=== PATIENT | female | born 1945 | race Caucasian/White ===

== ENCOUNTER 2021-03-17 11:57 | Emergency (ER) | payer MEDICARE, OTHER ==
[~2021-03-17] VITALS: Ht 172.7 cm; Wt 122.5 kg
[2021-03-17 12:29] LABS: BASOPHILS ABSOLUTE AUTO 0.05 K/mm3 (0.00-0.23); BASOPHILS PERCENT AUTO 1 % (0-2); EOSINOPHILS ABSOLUTE AUTO 0.17 K/mm3 (0.00-0.68); EOSINOPHILS PERCENT AUTO 2 % (0-6); Hematocrit 45.7 % (33.0-51.0); Hemoglobin 15.7 g/dL (11.5-16.0); IMMATURE GRAN ABSOLUTE AUTO 0.04 K/mm3 (0.00-0.10); IMMATURE GRAN PERCENT AUTO 0 % (0-1); LYMPHOCYTES ABSOLUTE AUTO 1.41 K/mm3 (0.84-5.20); LYMPHOCYTES PERCENT AUTO 14 % (21-46); MONOCYTES ABSOLUTE AUTO 0.76 K/mm3 (0.16-1.47); MONOCYTES PERCENT AUTO 8 % (4-13); Mean Corpuscular HGB 32.2 pg (26.0-34.0); Mean Corpuscular HGB Conc 34.4 g/dL (31.5-36.5); Mean Corpuscular Volume 94 fL (80-100); Mean Platelet Volume 11.2 fL (9.1-12.4); NEUTROPHILS ABSOLUTE AUTO 7.69 K/mm3 (1.96-9.15); NEUTROPHILS PERCENT AUTO 76 % (41-73); Platelet Count 218 K/mm3 (150-400); RDW Coefficient Variation 12.8 % (11.7-14.2); RDW Standard Deviation 44.2 fL (35.1-46.3); Red Blood Cell Count 4.88 M/mm3 (3.80-5.20); White Blood Cell Count 10.12 K/mm3 (4.00-11.30)
[2021-03-17 12:45] LABS: Alanine Aminotransfer (ALT/SGP 18 U/L (12-78); Albumin, Blood 3.5 g/dL (3.4-5.0); Alk Phos 94 U/L (50-136); Anion Gap 4 mmol/L (6-16); Aspartate Aminotrans (AST/SGOT 13 U/L (12-37); Bilirubin, Total 0.6 mg/dL (0.1-1.0); Blood Urea Nitrogen 17 mg/dL (8-24); Bun/Creatinine Ratio 22.5 (12.0-20.0); CO2, Blood 26 mmol/L (21-32); Calcium, Blood 8.9 mg/dL (8.5-10.1); Chloride, Blood 107 mmol/L (98-108); Creatinine, Blood 0.75 mg/dL (0.40-1.00); Globulin, Blood 3.5 g/dL (2.2-4.0); Glomerular Filtration Rate >60 (60-); Glucose, Blood 109 mg/dL (70-99); Potassium, Blood 4.3 mmol/L (3.5-5.5); Sodium, Blood 137 mmol/L (136-145)
[2021-03-17 12:57] LABS: Source, Urine Clean Catch
[2021-03-17 13:00] LABS: Appearance, Urine Clear (Clear); Bilirubin, Urine Neg (Neg); Blood, Urine Neg (Neg); Color, Urine Yellow (P-Yellow); Glucose Qualitative, Urine Neg (Neg); Ketones, Urine Neg (Neg); Leukocyte Esterase, Urine 2+ (Neg); Nitrite, Urine Neg (Neg); Protein, Urine 1+ (Neg); Urobilinogen, Urine NORM (Normal); pH, Urine 6.5 (5.0-8.0)
[2021-03-17 13:17] LABS: Bacteria Mod /hpf; Red Blood Cells, Urine 0-2 /hpf (0-2); Squamous Epithelial Cells Few /hpf (Few)
[2021-03-17] MEDS ORDERED: XARELTO20 M1 PO (13:21)
[2021-03-17] MEDS ORDERED: DILTIAZEM HCL120 M2 PO (13:21)
[2021-03-17] MEDS ORDERED: FLUTICASONE-SA1 EAC9 IH (13:21)
[2021-03-17] MEDS ORDERED: SYNTHROID125 MC1 (13:21)
== END 2021-03-17 16:00 | disposition home or self-care (01) ==
LOC: ER 11:57
PROVIDERS: Physician Assistant
DX: N85.9 Noninflammatory disorder of uterus, unspecified (principal); I48.91 Unspecified atrial fibrillation; J44.9 Chronic obstructive pulmonary disease, unspecified; Z79.01 Long term (current) use of anticoagulants
CPT/HCPCS: 36415; 74177; 76705; 80053; 81001; 83690; 85025; 87086; 99284-25; J7030; Q9967

== ENCOUNTER 2021-04-20 12:45 | Day surgery (SDC) | payer MEDICARE, OTHER ==
[~2021-04-20] VITALS: Ht 167.6 cm; Wt 119.5 kg
[~2021-04-20 12:45] MED LIST: ALPHAGAN P5 ML BOTHEYES; DILTIAZEM HCL120 M2 PO; FLUTICASONE-SA1 EAC9 IH; SYMBICORT 160-4.6 GM INH; SYNTHROID125 MC1; XARELTO20 M1 PO
[2021-04-20] MEDS ORDERED: OSTEOBLOX CF C1 EACH (13:22)
--- NOTE | 2021-04-20 13:39 | NUR ---
04/20/21 1339 Jacquie Uriarte 1 TRY RIGHT HAND MOVED 2 TRY RIGHT UPPER ARM MOVED
--- NOTE | 2021-04-20 15:47 | NUR ---
04/20/21 1547 Alissa Combs PEDIATRIC SCOPE OUT AT 1516 AND RESTART WITH ADULT SCOPE AT 1518
== END 2021-04-20 16:18 | disposition home or self-care (01) ==
LOC: ORSCSDS 12:45
DX: R10.13 Epigastric pain (principal); K21.00 Gastro-esophageal reflux disease with esophagitis, without bleeding; B37.81 Candidal esophagitis; K22.2 Esophageal obstruction; K44.9 Diaphragmatic hernia without obstruction or gangrene; D12.2 Benign neoplasm of ascending colon; K57.30 Diverticulosis of large intestine without perforation or abscess without bleeding; K64.8 Other hemorrhoids; K59.00 Constipation, unspecified; I48.0 Paroxysmal atrial fibrillation; I10 Essential (primary) hypertension; E05.00 Thyrotoxicosis with diffuse goiter without thyrotoxic crisis or storm; J44.9 Chronic obstructive pulmonary disease, unspecified; E66.01 Morbid (severe) obesity due to excess calories; Z68.41 Body mass index [BMI] 40.0-44.9, adult; Z79.01 Long term (current) use of anticoagulants; Z79.899 Other long term (current) drug therapy
CPT/HCPCS: 88305; 88312; 88342; J2001; J2704; J7120

== ENCOUNTER 2021-10-21 20:52 | Observation (INO) | payer MEDICARE, OTHER ==
[~2021-10-21] VITALS: Ht 167.6 cm; Wt 120.7 kg
[~2021-10-21 20:52] MED LIST changes: +OSTEOBLOX CF C1 EACH; -SYNTHROID125 MC1; +SYNTHROID125 MC1 PO
[2021-10-21 21:56] LABS: BASOPHILS ABSOLUTE AUTO 0.08 K/mm3 (0.00-0.23); BASOPHILS PERCENT AUTO 1 % (0-2); EOSINOPHILS PERCENT AUTO 5 % (0-6); Hematocrit 47.6 % (33.0-51.0); Hemoglobin 16.1 g/dL (11.5-16.0); IMMATURE GRAN ABSOLUTE AUTO 0.03 K/mm3 (0.00-0.10); IMMATURE GRAN PERCENT AUTO 0 % (0-1); LYMPHOCYTES PERCENT AUTO 30 % (21-46); MONOCYTES ABSOLUTE AUTO 0.71 K/mm3 (0.16-1.47); MONOCYTES PERCENT AUTO 9 % (4-13); Mean Corpuscular HGB 32.3 pg (26.0-34.0); Mean Corpuscular HGB Conc 33.8 g/dL (31.5-36.5); Mean Corpuscular Volume 96 fL (80-100); NEUTROPHILS ABSOLUTE AUTO 4.51 K/mm3 (1.96-9.15); NEUTROPHILS PERCENT AUTO 56 % (41-73); Platelet Count 220 K/mm3 (150-400); RDW Coefficient Variation 12.5 % (11.7-14.2); RDW Standard Deviation 44.4 fL (35.1-46.3); Red Blood Cell Count 4.98 M/mm3 (3.80-5.20); White Blood Cell Count 8.13 K/mm3 (4.00-11.30)
[2021-10-21 22:13] LABS: Alanine Aminotransfer (ALT/SGP 24 U/L (12-78); Albumin, Blood 3.4 g/dL (3.4-5.0); Albumin/Globulin Ratio 0.9 (0.8-1.8); Alk Phos 108 U/L (50-136); Anion Gap 7 mmol/L (6-16); Aspartate Aminotrans (AST/SGOT 17 U/L (12-37); Bilirubin, Total 0.3 mg/dL (0.1-1.0); Blood Urea Nitrogen 40 mg/dL (8-24); CO2, Blood 23 mmol/L (21-32); Calcium, Blood 9.4 mg/dL (8.5-10.1); Chloride, Blood 110 mmol/L (98-108); Creatinine, Blood 1.43 mg/dL (0.40-1.00); Globulin, Blood 3.7 g/dL (2.2-4.0); Glomerular Filtration Rate 35 (60-); Glucose, Blood 118 mg/dL (70-99); Magnesium, Blood 2.2 mg/dL (1.6-2.4); Potassium, Blood 4.5 mmol/L (3.5-5.5); Sodium, Blood 140 mmol/L (136-145); Total Protein, Blood 7.1 g/dL (6.4-8.2); Troponin I <0.015 ng/mL (0.000-0.040)
[2021-10-22 00:09] LABS: Free Thyroxine 1.13 ng/dL (0.70-1.60)
[2021-10-22 01:52] LABS: Influenza A, PCR NEGATIVE (NEGATIVE); Influenza B, PCR NEGATIVE (NEGATIVE); Resp Syncytial Virus, PCR NEGATIVE (NEGATIVE); SARS-Cov-2 (COVID-19) PCR, MMC NEGATIVE (NEGATIVE)
[2021-10-22 04:11] LABS: Hematocrit 43.7 % (33.0-51.0); Hemoglobin 14.7 g/dL (11.5-16.0); Mean Corpuscular HGB 32.2 pg (26.0-34.0); Mean Corpuscular HGB Conc 33.6 g/dL (31.5-36.5); Mean Corpuscular Volume 96 fL (80-100); Mean Platelet Volume 10.4 fL (9.1-12.4); Platelet Count 203 K/mm3 (150-400); RDW Coefficient Variation 12.6 % (11.7-14.2); RDW Standard Deviation 44.3 fL (35.1-46.3); Red Blood Cell Count 4.56 M/mm3 (3.80-5.20); White Blood Cell Count 8.02 K/mm3 (4.00-11.30)
[2021-10-22 04:36] LABS: Anion Gap 7 mmol/L (6-16); Blood Urea Nitrogen 31 mg/dL (8-24); Bun/Creatinine Ratio 37.3 (12.0-20.0); CO2, Blood 21 mmol/L (21-32); CPK Creatine Kinase 72 U/L (26-193); Calcium, Blood 7.8 mg/dL (8.5-10.1); Chloride, Blood 115 mmol/L (98-108); Creatine Kinase MB 1.6 ng/mL (0.0-3.6); Creatine Kinase MB Index 2.2 (0.0-4.0); Creatinine, Blood 0.83 mg/dL (0.40-1.00); Glomerular Filtration Rate >60 (60-); Glucose, Blood 118 mg/dL (70-99); Sodium, Blood 143 mmol/L (136-145); Troponin I 0.081 ng/mL (0.000-0.040)
[2021-10-22 13:23] LABS: Creatine Kinase MB 2.4 ng/mL (0.0-3.6); Troponin I 0.058 ng/mL (0.000-0.040)
[2021-10-22 13:27] LABS: Creatine Kinase MB Index 4.3 (0.0-4.0)
[2021-10-22] MEDS ORDERED: FLUT1DIS5 INH (13:27)
--- NOTE | 2021-10-22 20:59 | NUR ---
ASSUMED CARE OF PT AT 1900, REPORT RECEIVED FROM KRISSY VELAZQUEZ. PT ALERT AND ORIENTED, FOLLOWING COMMANDS. PT ON RA. PIVS SALINE LOCKED. ABLE TO REPOSITION SELF, CALL LIGHT WITHIN REACH.
[2021-10-23 03:38] LABS: BASOPHILS ABSOLUTE AUTO 0.06 K/mm3 (0.00-0.23); BASOPHILS PERCENT AUTO 1 % (0-2); EOSINOPHILS ABSOLUTE AUTO 0.12 K/mm3 (0.00-0.68); EOSINOPHILS PERCENT AUTO 1 % (0-6); Hematocrit 47.5 % (33.0-51.0); IMMATURE GRAN ABSOLUTE AUTO 0.03 K/mm3 (0.00-0.10); IMMATURE GRAN PERCENT AUTO 0 % (0-1); LYMPHOCYTES ABSOLUTE AUTO 1.53 K/mm3 (0.84-5.20); LYMPHOCYTES PERCENT AUTO 18 % (21-46); MONOCYTES ABSOLUTE AUTO 0.58 K/mm3 (0.16-1.47); MONOCYTES PERCENT AUTO 7 % (4-13); Mean Corpuscular HGB 32.1 pg (26.0-34.0); Mean Corpuscular HGB Conc 33.7 g/dL (31.5-36.5); Mean Corpuscular Volume 95 fL (80-100); Mean Platelet Volume 10.4 fL (9.1-12.4); NEUTROPHILS ABSOLUTE AUTO 6.32 K/mm3 (1.96-9.15); NEUTROPHILS PERCENT AUTO 73 % (41-73); Platelet Count 231 K/mm3 (150-400); RDW Coefficient Variation 12.8 % (11.7-14.2); RDW Standard Deviation 45.4 fL (35.1-46.3); Red Blood Cell Count 4.98 M/mm3 (3.80-5.20); White Blood Cell Count 8.64 K/mm3 (4.00-11.30)
[2021-10-23 04:13] LABS: Albumin, Blood 3.2 g/dL (3.4-5.0); Anion Gap 10 mmol/L (6-16); Blood Urea Nitrogen 28 mg/dL (8-24); Bun/Creatinine Ratio 35.6 (12.0-20.0); CO2, Blood 24 mmol/L (21-32); Chloride, Blood 110 mmol/L (98-108); Creatinine, Blood 0.79 mg/dL (0.40-1.00); Glomerular Filtration Rate >60 (60-); Glucose, Blood 105 mg/dL (70-99); Magnesium, Blood 2.3 mg/dL (1.6-2.4); Phosphorus, Blood 2.8 mg/dL (2.5-4.9); Potassium, Blood 4.2 mmol/L (3.5-5.5); Sodium, Blood 144 mmol/L (136-145)
--- NOTE | 2021-10-23 06:02 | NUR ---
SHIFT SUMMARY PT ALERT AND ORIENTED T/O SHIFT. REMAINS ON RA. HR 60-80'S SINUS ON MONITOR, PRN HYDRALAZINE GIVEN TWICE FOR SBP >180. PT DENIES PAIN AND SOB. ABLE TO REPOSITION SELF IN BED. ONE BM THIS SHIFT. CALL LIGHT WITHIN REACH AND USED APPROPRIATELY.
--- NOTE | 2021-10-23 08:46 | NUR ---
AM NOTE... ASSUMED CARE OF PT AT 0700. THE PT IS UP IN THE CHAIR FOR BREAKFAST SHE WAS A MIN ASSIST W/FWW. THE PT HAS BEEN IN SR IN THE 70'S-80'S WITH A STABLE BP. TRACE EDEMA NOTED ON ASSESSMENT TO THE BLE. THE PT IS ON RA WITH O2 SATS >90% L/S CLEAR T/O. THE PT DENIES ANY CHEST PAIN/PRESSURE BUT SHE DOES C/O OF FEELING "WOOZY AND OFF JUST A BIT" THE PT WANTED TO STAY UP IN THE CHAIR FOR A BIT AFTER BREAKFAST. NO EVENTS NOTED ON TELE. CALL LIGHT IN REACH WILL CONTINUE TO MONITOR.
[2021-10-23] MEDS ORDERED: AMLO5 PO (11:40)
[2021-10-23] MEDS ORDERED: HYDROCHLOROTH12.5 MG PO (11:41)
--- NOTE | 2021-10-23 12:36 | NUR ---
PT GIVEN FIRST DOSE OF NORVASC AND HCTZ-SEE EMAR. HEART MONITOR PLACED BY [facility] FROM [facility] AND INSTRUCTIONS GIVEN. REVIEWED DISCHARGE INSTRUCTIONS WITH PT. PT QUESTIONED THE DOSING OF HER LEVOTHYROXINE. DR. FERRARI CALLED TO CONFIRM THAT THE DOSE IS TO BE 0.125 MG AND NOT 0.[address] FERRARI CONFIRMED THAT THE DOSE IS TO BE 0.125 MG. PT TO RECHECK THYROID FUNCTION IN ONE MONTH AND FOLLOW UP WITH HER PRIMARY CARE PHYSICIAN. RX FAXED TO [facility].
== END 2021-10-23 13:00 | disposition home or self-care (01) ==
LOC: ER 20:52 → ERHOLD 20:53 → ICUE 20:53
PROVIDERS: Emergency Medicine; Internal Medicine; ADMIT Internal Medicine
DX: R00.1 Bradycardia, unspecified (principal); T46.1X5A Adverse effect of calcium-channel blockers, initial encounter; I16.0 Hypertensive urgency; I48.0 Paroxysmal atrial fibrillation; N17.9 Acute kidney failure, unspecified; I10 Essential (primary) hypertension; J44.9 Chronic obstructive pulmonary disease, unspecified; E89.0 Postprocedural hypothyroidism; E66.01 Morbid (severe) obesity due to excess calories; Y84.2 Radiological procedure and radiotherapy as the cause of abnormal reaction of the patient, or of later complication, without mention of misadventure at the time of the procedure; Z79.01 Long term (current) use of anticoagulants; Z96.653 Presence of artificial knee joint, bilateral; Z20.822 Contact with and (suspected) exposure to COVID-19
CPT/HCPCS: 0241U; 36415; 80048; 80053; 80069; 82550; 82553; 83735; 84439; 84443; 84484; 85025; 85027; 93005; 93010; 93246; 93306; 94640; 94664; 96365; 96366; 96375; 96376; 99285-25; A9270; G0378; J0360; J7050

== ENCOUNTER 2022-02-14 10:13 | Emergency (ER) | payer MEDICARE, OTHER ==
[~2022-02-14] VITALS: Ht 167.6 cm; Wt 117.9 kg
[~2022-02-14 10:13] MED LIST changes: +AMLO5 PO; +FLUT1DIS5 INH; +HYDROCHLOROTH12.5 MG PO
== END 2022-02-14 13:04 | disposition home or self-care (01) ==
LOC: ER 10:13
DX: S51.812A Laceration without foreign body of left forearm, initial encounter (principal); S51.811A Laceration without foreign body of right forearm, initial encounter; S80.02XA Contusion of left knee, initial encounter; J44.9 Chronic obstructive pulmonary disease, unspecified; Z87.891 Personal history of nicotine dependence; I48.91 Unspecified atrial fibrillation; Z88.0 Allergy status to penicillin; Z79.899 Other long term (current) drug therapy; X58.XXXA Exposure to other specified factors, initial encounter
CPT/HCPCS: 90471; 90714; 99284-25; A9270

== ENCOUNTER 2022-05-01 09:41 | Inpatient (IN) | payer MEDICARE, OTHER ==
[~2022-05-01] VITALS: Ht 167.6 cm; Wt 118.5 kg
[2022-05-01 11:15] LABS: BASOPHILS ABSOLUTE AUTO 0.07 K/mm3 (0.00-0.23); BASOPHILS PERCENT AUTO 1 % (0-2); EOSINOPHILS ABSOLUTE AUTO 0.21 K/mm3 (0.00-0.68); EOSINOPHILS PERCENT AUTO 3 % (0-6); Hematocrit 44.4 % (33.0-51.0); Hemoglobin 14.7 g/dL (11.5-16.0); IMMATURE GRAN ABSOLUTE AUTO 0.02 K/mm3 (0.00-0.10); IMMATURE GRAN PERCENT AUTO 0 % (0-1); LYMPHOCYTES ABSOLUTE AUTO 1.74 K/mm3 (0.84-5.20); LYMPHOCYTES PERCENT AUTO 24 % (21-46); MONOCYTES ABSOLUTE AUTO 0.68 K/mm3 (0.16-1.47); MONOCYTES PERCENT AUTO 9 % (4-13); Mean Corpuscular HGB 32.2 pg (26.0-34.0); Mean Corpuscular HGB Conc 33.1 g/dL (31.5-36.5); Mean Corpuscular Volume 97 fL (80-100); Mean Platelet Volume 11.3 fL (9.1-12.4); NEUTROPHILS ABSOLUTE AUTO 4.68 K/mm3 (1.96-9.15); NEUTROPHILS PERCENT AUTO 63 % (41-73); Platelet Count 238 K/mm3 (150-400); RDW Coefficient Variation 12.3 % (11.7-14.2); Red Blood Cell Count 4.57 M/mm3 (3.80-5.20)
[2022-05-01 11:26] LABS: Albumin, Blood 3.4 g/dL (3.4-5.0); Albumin/Globulin Ratio 1.1 (0.8-1.8); Bilirubin, Total 0.4 mg/dL (0.1-1.0); Bun/Creatinine Ratio 40.2 (12.0-20.0); Calcium, Blood 9.2 mg/dL (8.5-10.1); Creatinine, Blood 0.87 mg/dL (0.40-1.00); Globulin, Blood 3.1 g/dL (2.2-4.0); Magnesium, Blood 2.4 mg/dL (1.6-2.4); Potassium, Blood 4.4 mmol/L (3.5-5.5); Thyroid Stimulating Hormone 0.69 uIU/mL (0.360-4.800); Total Protein, Blood 6.5 g/dL (6.4-8.2)
[2022-05-02 00:33] LABS: SARS-Cov-2 (COVID-19) PCR, MMC NEGATIVE (NEGATIVE)
[2022-05-02 04:46] LABS: Anion Gap 7 mmol/L (6-16); Blood Urea Nitrogen 25 mg/dL (8-24); Bun/Creatinine Ratio 35.7 (12.0-20.0); CHOL/HDL RATIO 3.3; CO2, Blood 25 mmol/L (21-32); Calcium, Blood 9.5 mg/dL (8.5-10.1); Chloride, Blood 110 mmol/L (98-108); Cholesterol 154 mg/dL (50-200); Glomerular Filtration Rate 88 (60-); Glucose, Blood 108 mg/dL (70-99); HDL Cholesterol 46 mg/dL (>39); LDL/HDL RATIO 1.9; Low Density Lipoprotein Chol 87 mg/dL (0-110); Magnesium, Blood 2.5 mg/dL (1.6-2.4); Potassium, Blood 3.9 mmol/L (3.5-5.5); Sodium, Blood 142 mmol/L (136-145); Triglycerides 105 mg/dL (30-160); Very Low Density Lipoprot Chol 21 mg/dL (6-32)
--- NOTE | 2022-05-02 05:39 | NUR ---
SHIFT SUMMARY Assumed care of pt at 1999 as an ER admit. A/Ox4. History of recent falls, falls precautions in place. SBA to BSC, calls appropriately. Reports no pain, CP/pressure. Maintains over 95% on RA, LS clear on top and dim at bases. SR 70's on tele. SBP 140-150's. Strong +2 radials and +1 pedal pulses. Small amount of nonpitting edema to BLE. Attends in place d/t occasional urinary incontinence. Old scabbed spider bite to R lateral thigh, and old healing skin tear to L forearm. Dr. Wallace came to see patient, signed consents for pacemaker placement on Friday. Covid swab needed and instructions to hold Xarelto. Updated patient's per her request. Zoll and atropine at bedside per order. No acute events overnight. Will report to dayshift RN.
--- NOTE | 2022-05-02 15:28 | NUR ---
Patient is lying in bed and alert. Pt is immediately tearful about her upcoming surgery and shares about the depth of her nervousness. We then talk about her life history, her family and her Alev[employer] Li. She tells me about how her spouse Holden and her live in [facility] and that they have a son, Walt who lives locally and another son in [facility]. I normalize pt's fears, and provide therapeutic listening, anxiety containment, gentle counseling services director and prayer. Patient responds well and states, "You brought me much comfort today." I will continue to remian available.
--- NOTE | 2022-05-02 17:37 | NUR ---
SHIFT SUMMARY PT A/O X4 AND COOPERATIVE OF CARE. PT HYPERTENSIVE THROUGHOUT SHIFT WITH SBP RANGING 140-160'S, HYDRALAZINE ORDERED FOR SBP >165. PT REPORTED "HYDRALAZINE MADE ME FEEL FUNNY AND BROUGHT MY BLOOD PRESSURE REALLY LOW." PT BP WAS REPORTED BY NOC RN OF DROPPING TO 114/75 AFTER RECEIVING HYDRALAZINE. OTHER VSS THROUGHOUT SHIFT WITH O2 SATS >97% ON RA. NO REPORT OF CHEST APIN/PRESSURE THROUGHOUT SHIFT. NO REPORT OF SOB/DYSPNEA THROUGHOUT SHIFT. PT UP TO BEDSIDE COMMODE, SBA, TOLERATED WELL. PT IS TO BE NPO AFTER MIDNIGHT FOR PACEMAKER PLACEMENT TOMORROW.
[2022-05-03 04:26] LABS: Hematocrit 44.2 % (33.0-51.0); Hemoglobin 14.9 g/dL (11.5-16.0); Mean Corpuscular HGB 32.7 pg (26.0-34.0); Mean Corpuscular HGB Conc 33.7 g/dL (31.5-36.5); Mean Corpuscular Volume 97 fL (80-100); Mean Platelet Volume 10.4 fL (9.1-12.4); Platelet Count 238 K/mm3 (150-400); RDW Coefficient Variation 12.7 % (11.7-14.2); RDW Standard Deviation 45.5 fL (35.1-46.3); Red Blood Cell Count 4.55 M/mm3 (3.80-5.20); White Blood Cell Count 7.56 K/mm3 (4.00-11.30)
[2022-05-03 04:47] LABS: Albumin, Blood 3.3 g/dL (3.4-5.0); Albumin/Globulin Ratio 1.1 (0.8-1.8); Bilirubin, Total 0.5 mg/dL (0.1-1.0); Bun/Creatinine Ratio 39.5 (12.0-20.0); Creatinine, Blood 0.78 mg/dL (0.40-1.00); Globulin, Blood 2.9 g/dL (2.2-4.0); Potassium, Blood 4.1 mmol/L (3.5-5.5); Total Protein, Blood 6.2 g/dL (6.4-8.2)
--- NOTE | 2022-05-03 05:13 | NUR ---
SHIFT SUMMARY NO ACUTE CHANGES THIS SHIFT. VSS. AXO. PT REMAINS IN SR. NO CARDIAC EVENTS NOTED. ZOLL REMAINS AT BEDSIDE. ATROPINE AT BEDSIDE ORDERED. PT HAS BEEN UP TO BSC A FEW TIMES THIS SHIFT WITHOUT INCIDENT. NPO AT MIDNIGHT FOR PACEMAKER PLACEMENT THIS AM. PT RESTING MAJORITY OF SHIFT.
--- NOTE | 2022-05-03 12:47 | NUR ---
PROCEDURE UPDATE PT LEFT FOR PROCEDURE AT 1221 VIA HOSPITAL BED AND ON RA. PT OCCOMPANIED BY TWO STAFF [facility] MEMBERS FOR TRANSFER. PT CHART WITH PT DURING TRANSFER.
--- NOTE | 2022-05-03 15:25 | NUR ---
UPDATE PT ARRIVED TO PCU FROM [facility] AT 1305 VIA HOSPITAL BED AND OCCOMPANIED BY TWO STAFF MEMBERS. PT ON RA UPON ARRIVAL. PACER SITE OF LEFT CHEST WALL COVERED WITH BANDAGE AND C/D/I. PT REPORTS PAIN AT THE SURGICAL SITE, WILL TREAT PER EMAR. PT INSTRUCTED ABOUT THE USE OF SLING AND SLING APPLIED.
--- NOTE | 2022-05-03 18:02 | NUR ---
SHIFT SUMMARY PT A/O X4 AND COOPERATIVE OF CARE. PT SBP ELEVATED DURING SHIFT RANGING 130-160'S. OTHER VSS THROUGHOUT SHIFT WITH O2 SATS >95% ON RA. PT HAD ECHO DONE TODAY AND HAD PACEMAKER PLACED. SURGICAL SITE ON LEFT CHEST WALL C/D/I, ICE PACK IN PLACE AND PAIN TREATED PER EMAR. PT HAS SLING IN PLACE. POST PROCEDURE EKG DONE, IMAGE IN CHART. PT ABLE TO TRANSFER TO BEDSIDE COMMODE WITH MODERATE ASSISTANCE DUE TO LEFT ARM RESTRICTIONS.
[2022-05-04 05:42] LABS: Hematocrit 46.6 % (33.0-51.0); Hemoglobin 15.7 g/dL (11.5-16.0); Mean Corpuscular HGB 33.1 pg (26.0-34.0); Mean Corpuscular HGB Conc 33.7 g/dL (31.5-36.5); Mean Corpuscular Volume 98 fL (80-100); Mean Platelet Volume 10.2 fL (9.1-12.4); Platelet Count 202 K/mm3 (150-400); RDW Coefficient Variation 12.3 % (11.7-14.2); Red Blood Cell Count 4.75 M/mm3 (3.80-5.20); White Blood Cell Count 7.21 K/mm3 (4.00-11.30)
[2022-05-04 06:12] LABS: Albumin, Blood 3.3 g/dL (3.4-5.0); Albumin/Globulin Ratio 1.1 (0.8-1.8); Bilirubin, Total 0.4 mg/dL (0.1-1.0); Bun/Creatinine Ratio 40.2 (12.0-20.0); Calcium, Blood 8.9 mg/dL (8.5-10.1); Creatinine, Blood 0.7 mg/dL (0.40-1.00); Globulin, Blood 3.1 g/dL (2.2-4.0); Potassium, Blood 3.9 mmol/L (3.5-5.5); Total Protein, Blood 6.4 g/dL (6.4-8.2)
--- NOTE | 2022-05-04 06:15 | NUR ---
SHIFT SUMMARY PT ALERT AND ORIENTED X4. AFEBRILE. ON RA SATS OVER 96%. PULSE SR 60/70'S. BP STABLE, SLIGHTLY HYPERTENSIVE AT TIMES. C/O L CHEST PAIN RELATED TO PACER PLACEMENT, RELIEVED PER EMAR. X1 ASSIST FOR ADLS AND TO BEDSIDE COMMODE. IN BED RESTING WITH CALL ALARM AT SIDE. WILL CONTINUE TO MONITOR UNTIL REPORT GIVEN TO DAYSHIFT RN
--- NOTE | 2022-05-04 12:40 | NUR ---
DR. FERRARI NOTIFIED OF REPORTED L PNEUMOTHORAX 1.3 CM. ORDER RECEIVED TO GET CXR 1 VIEW AT 1600. ORDER PLACED.
[2022-05-04] MEDS ORDERED: ACET325 PO (17:21)
[2022-05-04] MEDS ORDERED: BENADRYL25 MG PO (17:21)
[2022-05-04] MEDS ORDERED: LEVO750 PO (17:22)
--- NOTE | 2022-05-04 19:22 | NUR ---
DISCHARGE SUMMARY: PT EDUCATED ON DISCHARGE INSTRUCTIONS, MEDICATIONS AND POST PACEMAKER PLACEMENT PRECAUTIONS. PT VU. PT ASSISTED WITH GETTING DRESSED AND PACKING UP BELONGINGS. PT ESCORTED TO POV WITH SON BY [employer] VIA WC.
== END 2022-05-04 19:23 | disposition home or self-care (01) | DRG 243 ==
LOC: ER 09:41 → PCU 19:58
PROVIDERS: Emergency Medicine; Internal Medicine; Internal Medicine Cardiovascular Disease; ADMIT Internal Medicine
PROC: 0JH606Z Insertion of Pacemaker, Dual Chamber into Chest Subcutaneous Tissue and Fascia, Open Approach (ICD-10-PCS; principal; 2022-05-03)
PROC: 02HK3JZ Insertion of Pacemaker Lead into Right Ventricle, Percutaneous Approach (ICD-10-PCS; 2022-05-03)
PROC: 02H63JZ Insertion of Pacemaker Lead into Right Atrium, Percutaneous Approach (ICD-10-PCS; 2022-05-03)
DX: I44.2 Atrioventricular block, complete (principal); Z68.41 Body mass index [BMI] 40.0-44.9, adult; J95.811 Postprocedural pneumothorax; I48.0 Paroxysmal atrial fibrillation; E05.90 Thyrotoxicosis, unspecified without thyrotoxic crisis or storm; E66.01 Morbid (severe) obesity due to excess calories; I10 Essential (primary) hypertension; E03.8 Other specified hypothyroidism; J44.9 Chronic obstructive pulmonary disease, unspecified; Z20.822 Contact with and (suspected) exposure to COVID-19; E87.6 Hypokalemia; Z85.3 Personal history of malignant neoplasm of breast; Z90.12 Acquired absence of left breast and nipple; Z92.3 Personal history of irradiation; Z88.0 Allergy status to penicillin; Z88.1 Allergy status to other antibiotic agents; Z88.8 Allergy status to other drugs, medicaments and biological substances; Z91.048 Other nonmedicinal substance allergy status; Z79.01 Long term (current) use of anticoagulants; Z79.899 Other long term (current) drug therapy; Y83.8 Other surgical procedures as the cause of abnormal reaction of the patient, or of later complication, without mention of misadventure at the time of the procedure
CPT/HCPCS: 33208; 36415; 36416; 71045; 71046; 80048; 80053; 80061; 83735; 84443; 84484; 85025; 85027; 93005; 93010; 93308; 93321; 94640; 94664; 94760; 94762; 97110; 97162; 99152; 99153; 99285-25; A9270; C1785; C1898; J0360; J1580; J1644; J2250; J3010; J3370; J7030; J7040; J7050; J7060; Q9967; U0004

== ENCOUNTER 2023-03-30 09:39 | Emergency (ER) | payer MEDICARE, OTHER ==
[~2023-03-30] VITALS: Ht 167.6 cm; Wt 122.5 kg
[~2023-03-30 09:39] MED LIST changes: +ACET325 PO; +BENADRYL25 MG PO; +LEVO750 PO
[2023-03-30] MEDS ORDERED: DILT120ERA PO (09:54)
[2023-03-30] MEDS ORDERED: METO25ER PO (09:54)
[2023-03-30 11:14] VITALS: BP 138/78
== END 2023-03-30 11:16 | disposition home or self-care (01) ==
LOC: ER 09:39
DX: R04.0 Epistaxis (principal); I48.0 Paroxysmal atrial fibrillation; I10 Essential (primary) hypertension; J44.9 Chronic obstructive pulmonary disease, unspecified; E03.9 Hypothyroidism, unspecified; Z88.0 Allergy status to penicillin; Z91.048 Other nonmedicinal substance allergy status; Z88.1 Allergy status to other antibiotic agents; Z88.6 Allergy status to analgesic agent; Z79.01 Long term (current) use of anticoagulants; Z79.899 Other long term (current) drug therapy

== ENCOUNTER 2023-04-17 21:36 | Emergency (ER) | payer MEDICARE, OTHER ==
[~2023-04-17] VITALS: Ht 167.6 cm; Wt 122.5 kg
[~2023-04-17 21:36] MED LIST changes: +DILT120ERA PO; +METO25ER PO
[2023-04-17 21:42] VITALS: BP 144/119
[2023-04-17] MEDS ORDERED: ONDA4 PO (23:08)
== END 2023-04-17 23:38 | disposition home or self-care (01) ==
LOC: ER 21:36
DX: R04.0 Epistaxis (principal); I10 Essential (primary) hypertension; I48.0 Paroxysmal atrial fibrillation; E03.9 Hypothyroidism, unspecified; Z88.0 Allergy status to penicillin; Z88.6 Allergy status to analgesic agent; Z88.1 Allergy status to other antibiotic agents; Z91.048 Other nonmedicinal substance allergy status; Z79.01 Long term (current) use of anticoagulants; Z79.899 Other long term (current) drug therapy
CPT/HCPCS: 30903; 99283-25; A9270

== ENCOUNTER 2023-06-02 07:51 | Emergency (ER) | payer MEDICARE, OTHER ==
[~2023-06-02] VITALS: Ht 167.6 cm; Wt 122.5 kg
[~2023-06-02 07:51] MED LIST changes: +ONDA4 PO
[2023-06-02 09:19] LABS: BASOPHILS ABSOLUTE AUTO 0.07 K/mm3 (0.00-0.23); BASOPHILS PERCENT AUTO 1 % (0-2); EOSINOPHILS ABSOLUTE AUTO 0.08 K/mm3 (0.00-0.68); EOSINOPHILS PERCENT AUTO 1 % (0-6); Hematocrit 51.2 % (33.0-51.0); Hemoglobin 17.3 g/dL (11.5-16.0); IMMATURE GRAN ABSOLUTE AUTO 0.03 K/mm3 (0.00-0.10); IMMATURE GRAN PERCENT AUTO 0 % (0-1); LYMPHOCYTES ABSOLUTE AUTO 1.11 K/mm3 (0.84-5.20); LYMPHOCYTES PERCENT AUTO 14 % (21-46); MONOCYTES ABSOLUTE AUTO 0.56 K/mm3 (0.16-1.47); MONOCYTES PERCENT AUTO 7 % (4-13); Mean Corpuscular HGB 32.8 pg (26.0-34.0); Mean Corpuscular HGB Conc 33.8 g/dL (31.5-36.5); Mean Corpuscular Volume 97 fL (80-100); Mean Platelet Volume 10.8 fL (9.1-12.4); NEUTROPHILS ABSOLUTE AUTO 6.06 K/mm3 (1.96-9.15); NEUTROPHILS PERCENT AUTO 77 % (41-73); Platelet Count 208 K/mm3 (150-400); RDW Coefficient Variation 13.1 % (11.7-14.2); RDW Standard Deviation 46.7 fL (35.1-46.3); Red Blood Cell Count 5.28 M/mm3 (3.80-5.20); White Blood Cell Count 7.91 K/mm3 (4.00-11.30)
[2023-06-02 11:35] LABS: Albumin, Blood 3.5 g/dL (3.4-5.0); Albumin/Globulin Ratio 1.1 (0.8-1.8); Bilirubin, Total 0.8 mg/dL (0.1-1.0); Bun/Creatinine Ratio 21.3 (12.0-20.0); Calcium, Blood 9.6 mg/dL (8.5-10.1); Creatinine, Blood 0.94 mg/dL (0.40-1.00); Globulin, Blood 3.3 g/dL (2.2-4.0); Potassium, Blood 4.5 mmol/L (3.5-5.5); Total Protein, Blood 6.8 g/dL (6.4-8.2)
[2023-06-02] MEDS ORDERED: ONDA4ODT MM (12:46)
[2023-06-02] MEDS ORDERED: Lasix20 MG PO (12:47)
[2023-06-02 13:15] VITALS: BP 159/88
== END 2023-06-02 13:31 | disposition home or self-care (01) ==
LOC: ER 07:51
PROVIDERS: Emergency Medicine
DX: I11.0 Hypertensive heart disease with heart failure (principal); I50.9 Heart failure, unspecified; J90 Pleural effusion, not elsewhere classified; R05.9 Cough, unspecified; R11.2 Nausea with vomiting, unspecified; R19.7 Diarrhea, unspecified; I48.0 Paroxysmal atrial fibrillation; J44.9 Chronic obstructive pulmonary disease, unspecified; E03.9 Hypothyroidism, unspecified; Z88.6 Allergy status to analgesic agent; Z88.0 Allergy status to penicillin; Z88.1 Allergy status to other antibiotic agents; Z91.048 Other nonmedicinal substance allergy status; Z79.01 Long term (current) use of anticoagulants; Z79.899 Other long term (current) drug therapy
CPT/HCPCS: 71046; 80053; 83735; 83880; 84484; 85025; 93005; 93010; 96374; 99285-25; J1940

== ENCOUNTER 2023-07-08 09:08 | Inpatient (IN) | payer MEDICARE, OTHER ==
[~2023-07-08] VITALS: Ht 167.6 cm; Wt 121.2 kg
[~2023-07-08 09:08] MED LIST changes: +Lasix20 MG PO; +ONDA4ODT MM
[2023-07-08 10:45] LABS: Albumin, Blood 3.3 g/dL (3.4-5.0); Bilirubin, Total 0.6 mg/dL (0.1-1.0); Bun/Creatinine Ratio 31.2 (12.0-20.0); Calcium, Blood 8.9 mg/dL (8.5-10.1); Creatinine, Blood 0.99 mg/dL (0.40-1.00); Globulin, Blood 3.3 g/dL (2.2-4.0); Potassium, Blood 3.9 mmol/L (3.5-5.5); Total Protein, Blood 6.6 g/dL (6.4-8.2)
[2023-07-08 11:27] LABS: BASOPHILS ABSOLUTE AUTO 0.05 K/mm3 (0.00-0.23); BASOPHILS PERCENT AUTO 1 % (0-2); EOSINOPHILS ABSOLUTE AUTO 0.11 K/mm3 (0.00-0.68); EOSINOPHILS PERCENT AUTO 1 % (0-6); Hematocrit 48.5 % (33.0-51.0); Hemoglobin 16.5 g/dL (11.5-16.0); IMMATURE GRAN ABSOLUTE AUTO 0.02 K/mm3 (0.00-0.10); IMMATURE GRAN PERCENT AUTO 0 % (0-1); LYMPHOCYTES ABSOLUTE AUTO 1.12 K/mm3 (0.84-5.20); LYMPHOCYTES PERCENT AUTO 13 % (21-46); MONOCYTES ABSOLUTE AUTO 0.53 K/mm3 (0.16-1.47); MONOCYTES PERCENT AUTO 6 % (4-13); Mean Corpuscular HGB 32.3 pg (26.0-34.0); Mean Corpuscular Volume 95 fL (80-100); Mean Platelet Volume 10.4 fL (9.1-12.4); NEUTROPHILS ABSOLUTE AUTO 6.86 K/mm3 (1.96-9.15); NEUTROPHILS PERCENT AUTO 79 % (41-73); Platelet Count 214 K/mm3 (150-400); RDW Coefficient Variation 12.7 % (11.7-14.2); RDW Standard Deviation 44.5 fL (35.1-46.3); Red Blood Cell Count 5.11 M/mm3 (3.80-5.20); White Blood Cell Count 8.69 K/mm3 (4.00-11.30)
[2023-07-08 15:04] LABS: Base Excess Venous 5.9 mmol/L; Bicarbonate Venous 28.4 mmol/L (24.0-30.0); PCO2 Venous 48.6 mmHg (38-42); pH Blood Venous 7.41 (7.34-7.37)
[2023-07-08 15:37] LABS: International Normalized Ratio 1.12; Prothrombin Time Results 11.7 Sec (9.7-11.5)
[2023-07-08 16:07] VITALS: BP 149/86
--- NOTE | 2023-07-08 18:00 | NUR ---
ADMISSION AND SHIFT SUMMARY PATIENT ADMITTED TO MEDICAL FLOOR. PATIENT TO HAVE THORACENTESIS IN AM AND THEN A CARDIOVERSION TO FOLLOW. PATIENT ALERT AND ORIENTED. RESIDES AT [facility]. PATIENT SOB WITH ANY EXCERSION AND UNABLE TO LAY FLAT AT THIS TIME. LOWER EXTREMETIES TESHA. PULSES PALPABLE OF BOTH LOWER EXTREMETIES. PATIENT DENIES ANY CHEST PAIN AT THIS TIME BUT VERBALIZES SOME ANXIETY.
[2023-07-08 21:30] VITALS: BP 149/67
[2023-07-09] VITALS (41 sets, daily range): BP systolic 96–159; BP diastolic 60–93
[2023-07-09 00:15] LABS: BASOPHILS ABSOLUTE AUTO 0.07 K/mm3 (0.00-0.23); BASOPHILS PERCENT AUTO 1 % (0-2); EOSINOPHILS ABSOLUTE AUTO 0.15 K/mm3 (0.00-0.68); EOSINOPHILS PERCENT AUTO 2 % (0-6); Hematocrit 48.8 % (33.0-51.0); Hemoglobin 16.6 g/dL (11.5-16.0); IMMATURE GRAN ABSOLUTE AUTO 0.03 K/mm3 (0.00-0.10); IMMATURE GRAN PERCENT AUTO 0 % (0-1); LYMPHOCYTES ABSOLUTE AUTO 1.33 K/mm3 (0.84-5.20); LYMPHOCYTES PERCENT AUTO 14 % (21-46); MONOCYTES ABSOLUTE AUTO 0.75 K/mm3 (0.16-1.47); MONOCYTES PERCENT AUTO 8 % (4-13); Mean Corpuscular HGB 32.4 pg (26.0-34.0); Mean Corpuscular Volume 95 fL (80-100); NEUTROPHILS ABSOLUTE AUTO 7.39 K/mm3 (1.96-9.15); NEUTROPHILS PERCENT AUTO 76 % (41-73); Platelet Count 202 K/mm3 (150-400); RDW Coefficient Variation 12.5 % (11.7-14.2); RDW Standard Deviation 44.9 fL (35.1-46.3); Red Blood Cell Count 5.12 M/mm3 (3.80-5.20); White Blood Cell Count 9.72 K/mm3 (4.00-11.30)
[2023-07-09 00:45] LABS: Alanine Aminotransfer (ALT/SGP 21 U/L (12-78); Albumin, Blood 3.1 g/dL (3.4-5.0); Alk Phos 54 U/L (50-136); Anion Gap 9 mmol/L (6-16); Aspartate Aminotrans (AST/SGOT 14 U/L (12-37); Bilirubin, Total 0.7 mg/dL (0.1-1.0); Blood Urea Nitrogen 30 mg/dL (8-24); Bun/Creatinine Ratio 30.6 (12.0-20.0); CHOL/HDL RATIO 3.4; CO2, Blood 28 mmol/L (21-32); Calcium, Blood 8.8 mg/dL (8.5-10.1); Chloride, Blood 104 mmol/L (98-108); Cholesterol 151 mg/dL (50-200); Creatinine, Blood 0.98 mg/dL (0.40-1.00); Globulin, Blood 3.1 g/dL (2.2-4.0); Glomerular Filtration Rate 58 (60-); Glucose, Blood 100 mg/dL (70-99); HDL Cholesterol 45 mg/dL (>39); Low Density Lipoprotein Chol 88 mg/dL (0-110); Magnesium, Blood 1.9 mg/dL (1.6-2.4); Potassium, Blood 3.4 mmol/L (3.5-5.5); Sodium, Blood 141 mmol/L (136-145); Thyroid Stimulating Hormone 0.987 uIU/mL (0.360-4.800); Total Protein, Blood 6.2 g/dL (6.4-8.2); Triglycerides 91 mg/dL (30-160); Very Low Density Lipoprot Chol 18 mg/dL (6-32)
--- NOTE | 2023-07-09 04:59 | NUR ---
SHIFT SUMMARY 78 YR F ADMITTED ON 07/08/23 FOR PLEURAL EFFUSION. LIMITED CODE. NO ACUTE CHANGES THIS SHIFT. PT HAS BEEN NPO SINCE MIDNIGHT IN ANTICIPATION OF THORACENTESIS THIS A.M. NO C/O PAIN OR DISCOMFORT BUT PT C/O NOT BEING ABLE TO SLEEP WELL. PUREWIK IN PLACE AND DRAINING WELL. HEPARIN DRIP RATE CHANGE PER PHARMACT AT 0106. CHANGED TO 16 U/KG/HR 26.9 ML/HR.
--- NOTE | 2023-07-09 16:22 | NUR ---
PATIENT WAS BROUGHT TO THE WORKERS COMPENSATION ATTORNEY AND WITH ANESTHESIA, A MARI AND DCCV WAS PERFORMED. PATIENT TOLERATED WELL. SHOCK 200 JOULES X 1 DELIVERED SYNCED AND CONVERTED FROM AFIB TO SR. EKG AND PACER CHECK WAS PERFORMED AT THE BEDSIDE. ALL VIEWED BY DR. BALL. PATIENT WILL BE TRANSFERED TO PCU # 3 FROM [facility] DUE TO BE STARTED ON AMINODARONE GTT WITH BOLUS.
--- NOTE | 2023-07-09 16:57 | NUR ---
1345 PT TRANSPORTED TO .S. LAB FOR GUIDED THOROCENTESIS. PT AMBULATED TO [facility] AND HAD LG BM AND VOIDSE, THAN TO WHEELCHAIR- PT HAS BEEN NPO SINCE [place] EXCEPT FOR SIPS OF WATER WITH MEDS THIS AM. TURNED OFF HEPARIN GTT AT 1030 PRE PROCEDURE.
--- NOTE | 2023-07-09 16:59 | NUR ---
CALLED [facility] U 1700 TO GIVE REPOET FOR PT BEING TRANSFERRED TO PCU 3 FROM [facility] S/P CARDIOVERSION/MARI
--- NOTE | 2023-07-09 17:34 | NUR ---
S/P DCCV PATIENT REMAINS ON HEPARIN GTT, AMINDARONE GTT WAS STARTED AND PATIENT WAS TRANSFERRED TO PCU #3 VIA GURNEY. SBAR GIVEN AT BEDSIDE.
--- NOTE | 2023-07-09 18:57 | NUR ---
PT ARRIVED IN THE ROOM FROM THE [facility] POST CARDIOVERSION/MARI. PT WAS A TRANSFER FROM MEDICAL FLR REPORT RECEIVED FROM CRISTHIAN VELAZQUEZ, THORACENTESIS WAS DONE PRIOR TO CARDIOVERSION 3300MLS FLUID WAS TAKEN OUT. BEDSIDE REPORT FROM ARTI VELAZQUEZ FROM THE [facility]ART [facility]. PT ON AMIODARON GTT UPON ARRIVAL AT 1MG/HR 33.3MLS/HR. HEP GT AT 16U/KG/HR. BOTH INFUSION RUNNING INTO 22G PIV, POWERGLIDE PLACED ON OPAL FOR BETTER IV ACCESS. VITALS HAS BEEN STBALE, PT DENIES ANY CHESTPAIN/DIZZINES/NAUSEA/VOMTING. DIET RESUMED NO ISSUES REPORTED. PUREWICK IN PLACE PER PT'S REQUESTS. PT NOW IN BED RESTING, CALL LIGHTS IN REACH WILL REPORT TO ONCOMING SHIFT
[2023-07-10 04:06] VITALS: BP 131/65
--- NOTE | 2023-07-10 04:43 | NUR ---
SHIFT SUMMARY NO ACUTE CHANGES OVERNIGHT. PT VPACED WITH HR 60-70'S. BP STABLE. ON RA WITH SPO2 >92%. AFEBRILE. AMIO GTT AND HEP GTT INFUSING PER EMAR. PT DENIES CHEST PAIN/PRESSURE. DECLINED ASSISTANCE WITH REPOSITIONING. PUREWICK IN PLACE. CALLING APPROPRIATELY. BED IN LOWEST POSITION AND CALL LIGHT WITHIN REACH. THIS RN WILL CONTINUE TO MONITOR UNTIL SHIFT CHANGE AT 0700.
[2023-07-10 05:31] LABS: BASOPHILS ABSOLUTE AUTO 0.06 K/mm3 (0.00-0.23); BASOPHILS PERCENT AUTO 1 % (0-2); EOSINOPHILS ABSOLUTE AUTO 0.17 K/mm3 (0.00-0.68); EOSINOPHILS PERCENT AUTO 2 % (0-6); Hematocrit 49.1 % (33.0-51.0); Hemoglobin 17.1 g/dL (11.5-16.0); IMMATURE GRAN ABSOLUTE AUTO 0.04 K/mm3 (0.00-0.10); IMMATURE GRAN PERCENT AUTO 0 % (0-1); LYMPHOCYTES ABSOLUTE AUTO 1.54 K/mm3 (0.84-5.20); LYMPHOCYTES PERCENT AUTO 15 % (21-46); MONOCYTES ABSOLUTE AUTO 0.71 K/mm3 (0.16-1.47); MONOCYTES PERCENT AUTO 7 % (4-13); Mean Corpuscular HGB 32.7 pg (26.0-34.0); Mean Corpuscular HGB Conc 34.8 g/dL (31.5-36.5); Mean Corpuscular Volume 94 fL (80-100); Mean Platelet Volume 10.6 fL (9.1-12.4); NEUTROPHILS ABSOLUTE AUTO 7.63 K/mm3 (1.96-9.15); NEUTROPHILS PERCENT AUTO 75 % (41-73); Platelet Count 146 K/mm3 (150-400); RDW Coefficient Variation 12.7 % (11.7-14.2); RDW Standard Deviation 43.8 fL (35.1-46.3); Red Blood Cell Count 5.23 M/mm3 (3.80-5.20); White Blood Cell Count 10.15 K/mm3 (4.00-11.30)
[2023-07-10 05:44] LABS: Calcium, Blood 8.5 mg/dL (8.5-10.1); Magnesium, Blood 2.5 mg/dL (1.6-2.4)
[2023-07-10 08:00] VITALS: BP 143/76
[2023-07-10 12:14] VITALS: BP 124/63
[2023-07-10 15:33] VITALS: BP 131/60
--- NOTE | 2023-07-10 17:20 | NUR ---
Review of patient with nursing. Brief meeting with patient to review her symptoms and needs. She is very brigh in affect and enthusiastic about feeling so much better. Advised her I have a supportive role and we will talk tomorrow about some life care planning.
--- NOTE | 2023-07-10 18:39 | NUR ---
SHIFT SUMMARY ALERT, ORIENTED, COOPERATIVE. TOLERATING CARDIAC DIET AND LIQUIDS. SWITCHED HEPARIN GTT TO PO XARELTO, COMPLETED AMIODARONE GTT. SALINE LOCKED AT THIS TIME. DC'D SHIRIN. SBA TO COMMODE WITH FWW. VOIDING WELL. SKIN WITH REDNESS TO FOLDS, SMALL SCRAPE ON BACK OF RIGHT THIGH. TELE SHOWS VPACED AT 60S. PLAN FOR EKG IN AM AND DISCHARGE HOME WITH CARDIOLOGY FOLLOW UP OUTPATIENT.
[2023-07-10 20:00] VITALS: BP 141/70
[2023-07-11 00:26] VITALS: BP 129/58
[2023-07-11 04:15] VITALS: BP 135/73
[2023-07-11 04:46] LABS: BASOPHILS ABSOLUTE AUTO 0.06 K/mm3 (0.00-0.23); BASOPHILS PERCENT AUTO 1 % (0-2); EOSINOPHILS PERCENT AUTO 3 % (0-6); Hematocrit 47.6 % (33.0-51.0); Hemoglobin 16.2 g/dL (11.5-16.0); IMMATURE GRAN ABSOLUTE AUTO 0.04 K/mm3 (0.00-0.10); IMMATURE GRAN PERCENT AUTO 0 % (0-1); LYMPHOCYTES PERCENT AUTO 13 % (21-46); MONOCYTES ABSOLUTE AUTO 0.67 K/mm3 (0.16-1.47); MONOCYTES PERCENT AUTO 8 % (4-13); Mean Corpuscular HGB 32.5 pg (26.0-34.0); Mean Corpuscular Volume 96 fL (80-100); Mean Platelet Volume 11.1 fL (9.1-12.4); NEUTROPHILS PERCENT AUTO 75 % (41-73); Platelet Count 226 K/mm3 (150-400); RDW Coefficient Variation 12.6 % (11.7-14.2); RDW Standard Deviation 45.1 fL (35.1-46.3); Red Blood Cell Count 4.98 M/mm3 (3.80-5.20); White Blood Cell Count 8.97 K/mm3 (4.00-11.30)
[2023-07-11 05:15] LABS: Bun/Creatinine Ratio 31.1 (12.0-20.0); Calcium, Blood 8.7 mg/dL (8.5-10.1); Creatinine, Blood 1.06 mg/dL (0.40-1.00); Potassium, Blood 4.8 mmol/L (3.5-5.5)
--- NOTE | 2023-07-11 05:34 | NUR ---
SHIFT SUMMARY PT REMAINS A&O X4. PLEASANT AND COOPERATIVE WITH CARE. VSS. PT REPORTS "FEELING MUCH BETTER AND IS IMPROVING". NO ACUTE EVENTS OVERNIGHT. PT REMAINS ON RA. PW IN PLACE W/700 MLS OUT THIS SHIFT. PT DENIES CP OR PRESSURE, DENIES SOB. PT RESTED WELL THROUGHOUT THE NIGHT. WILL UPDATE ONCOMING RN
[2023-07-11 07:08] VITALS: BP 143/72
[2023-07-11 11:54] VITALS: BP 152/60
[2023-07-11] MEDS ORDERED: PACERONE100 M1 PO (13:08)
[2023-07-11] MEDS ORDERED: JARDIANCE10 MG PO (13:09)
[2023-07-11] MEDS ORDERED: ENTRESTO 24 MG1 EAC2 PO (13:11)
[2023-07-11] MEDS ORDERED: SPIR25 PO (13:11)
--- NOTE | 2023-07-11 14:06 | NUR ---
DISCHARGE SUMMARY ALERT, ORIENTED, COOPERATIVE. DENIES CP RO SOB, ROOM AIR. NO COUGH. TELE VPACED IN 60S. SBA WITH FWW TO BATHROOM. TOLERATING CARDIAC DIET AND LIQUIDS. VOIDING WELL. OTHER VSS. TOLERATING AMIODARONE AND ENTRESTO. AM EKG AND XRAY UNCHANGED. SEEN BY DR PEDRAZA. DISCHARGE ORDERS PLACED. DISCHARGE EDUCATION GIVEN ON NEW MEDS AND FOLLOW UP APPTS WITH PCP AND CARDIOLOGY. POWERGLIDE IV DC'D WNL. PATIENT LEFT UNIT AT 1405 VIA WHEELCHAIR FOR HOME WITH SON.
== END 2023-07-11 14:09 | disposition home or self-care (01) | DRG 292 ==
LOC: ER 09:08 → PCU 12:23 → MEDS 12:23 → PCU 07-09 17:04
PROVIDERS: Emergency Medicine; Internal Medicine Cardiovascular Disease; Student in an Organized Health Care Education/Training Program; ADMIT Internal Medicine
PROC: 5A2204Z Restoration of Cardiac Rhythm, Single (ICD-10-PCS; principal; 2023-07-09)
PROC: B24BZZ4 Ultrasonography of Heart with Aorta, Transesophageal (ICD-10-PCS; 2023-07-09)
PROC: 0W993ZZ Drainage of Right Pleural Cavity, Percutaneous Approach (ICD-10-PCS; 2023-07-09)
DX: I13.0 Hypertensive heart and chronic kidney disease with heart failure and stage 1 through stage 4 chronic kidney disease, or unspecified chronic kidney disease (principal); I48.19 Other persistent atrial fibrillation; I50.20 Unspecified systolic (congestive) heart failure; Z68.41 Body mass index [BMI] 40.0-44.9, adult; J90 Pleural effusion, not elsewhere classified; I48.0 Paroxysmal atrial fibrillation; J44.9 Chronic obstructive pulmonary disease, unspecified; E03.9 Hypothyroidism, unspecified; Z66 Do not resuscitate; E66.01 Morbid (severe) obesity due to excess calories; F41.9 Anxiety disorder, unspecified; E05.90 Thyrotoxicosis, unspecified without thyrotoxic crisis or storm; I44.30 Unspecified atrioventricular block; R00.1 Bradycardia, unspecified; N18.31 Chronic kidney disease, stage 3a; D75.1 Secondary polycythemia; I42.9 Cardiomyopathy, unspecified; M43.16 Spondylolisthesis, lumbar region; E87.6 Hypokalemia; E83.42 Hypomagnesemia; I50.82 Biventricular heart failure; Z88.0 Allergy status to penicillin; Z88.1 Allergy status to other antibiotic agents; Z91.048 Other nonmedicinal substance allergy status; Z79.890 Hormone replacement therapy; Z79.01 Long term (current) use of anticoagulants; Z79.899 Other long term (current) drug therapy; Z95.0 Presence of cardiac pacemaker; Z85.3 Personal history of malignant neoplasm of breast; Z90.12 Acquired absence of left breast and nipple; Z92.3 Personal history of irradiation
CPT/HCPCS: 32555; 36415; 71045; 71046; 80048; 80053; 80061; 82803; 82947; 83036; 83735; 83880; 84443; 84484; 85025; 85610; 85730; 93005; 93010; 93280; 93312; 93325; 94640; 94664; 94760; 96374; 97116; 97161; 99285-25; A9270; C1751; J0282; J0330; J1644; J1940; J2704; J3475; J7030; J7060

== ENCOUNTER 2023-11-07 12:04 | Day surgery (SDC) | payer MEDICARE, OTHER ==
[~2023-11-07 12:04] MED LIST changes: +ENTRESTO 24 MG1 EAC2 PO; +JARDIANCE10 MG PO; +PACERONE100 M1 PO; +SPIR25 PO
[2023-11-07 12:30] VITALS: BP 154/66
--- NOTE | 2023-11-07 12:46 | NUR ---
PT HERE FOR THORACENTESIS WITH DR ORTEGA. History, Chart, Medications and Allergies reviewed before start of procedure. Pre-Op teaching done. Pt verbalizes understanding. Patient States Post-Procedure ride home has been arranged.
[2023-11-07 13:14] VITALS: BP 165/63
[2023-11-07 13:38] VITALS: BP 142/59
--- NOTE | 2023-11-07 13:44 | NUR ---
11/07/23 1341 Seymour Miller History, Chart, Medications and Allergies reviewed before start of procedure. MONITOR INTACT WITH CONTINUOUS PULSE OXIMETRY AND INTERMITTENT BLOOD PRESSURE.
[2023-11-07 14:00] VITALS: BP 139/73
--- NOTE | 2023-11-07 14:16 | NUR ---
Patient up to Ambulate with standby assist. Gait steady. Discharge instructions reviewed with patient. Patient verbalizes understanding. Copy given to patient to take home. Dressing to procedure site clean, dry, intact with no visible drainage, swelling, erythema or bruising noted. Discharged via wheelchair to private car for ride home.
== END 2023-11-07 14:10 | disposition home or self-care (01) ==
LOC: ORSCMMR 12:04 → ORD 13:00 → ORSCMMR 13:00
PROVIDERS: Student in an Organized Health Care Education/Training Program
PROC: 0W9B3ZX Drainage of Left Pleural Cavity, Percutaneous Approach, Diagnostic (ICD-10-PCS; principal; 2023-11-07 13:00)
PROC: 0W993ZX Drainage of Right Pleural Cavity, Percutaneous Approach, Diagnostic (ICD-10-PCS; principal; 2023-11-07 13:00)
DX: J91.0 Malignant pleural effusion (principal); I48.91 Unspecified atrial fibrillation; Z79.01 Long term (current) use of anticoagulants; Z95.0 Presence of cardiac pacemaker; I10 Essential (primary) hypertension; Z85.3 Personal history of malignant neoplasm of breast; J44.9 Chronic obstructive pulmonary disease, unspecified; E05.00 Thyrotoxicosis with diffuse goiter without thyrotoxic crisis or storm; Z79.899 Other long term (current) drug therapy
CPT/HCPCS: 71045; C1751

== ENCOUNTER 2024-09-17 16:59 | Emergency (ER) | payer MEDICARE, OTHER ==
[~2024-09-17] VITALS: Ht 167.6 cm; Wt 122.5 kg
[2024-09-17] MEDS ORDERED: FASLODEX250 MG/5 M IM (17:26)
[2024-09-17] MEDS ORDERED: FURO20 PO (17:26)
[2024-09-17] MEDS ORDERED: HYDROcodone 5-APAP 325 TAB PO ONE (18:15)
[2024-09-17] MEDS ORDERED: RX Prepack 6 Tabs Oxycodone 5mg UD ONE (19:05)
[2024-09-17 19:15] VITALS: BP 129/45
== END 2024-09-17 19:30 | disposition home or self-care (01) ==
LOC: ER 16:59
DX: S09.90XA Unspecified injury of head, initial encounter (principal); S16.1XXA Strain of muscle, fascia and tendon at neck level, initial encounter; S51.811A Laceration without foreign body of right forearm, initial encounter; W18.30XA Fall on same level, unspecified, initial encounter; Z88.6 Allergy status to analgesic agent; Z88.0 Allergy status to penicillin; Z88.1 Allergy status to other antibiotic agents; Z79.899 Other long term (current) drug therapy; I48.0 Paroxysmal atrial fibrillation; J44.9 Chronic obstructive pulmonary disease, unspecified; I10 Essential (primary) hypertension
CPT/HCPCS: 70450; 72100; 72125; 99284-25; A9270

== ENCOUNTER 2025-02-13 15:24 | Inpatient (IN) | payer MEDICARE, OTHER ==
[~2025-02-13] VITALS: Ht 167.6 cm; Wt 130.0 kg
[~2025-02-13 15:24] MED LIST changes: -ALPHAGAN P5 ML BOTHEYES; +Amiodarone HCl200 MG PO; +FURO20 PO; -PACERONE100 M1 PO
[2025-02-13 16:36] LABS: Albumin, Blood 3.1 g/dL (3.4-5.0); Albumin/Globulin Ratio 0.8 (0.8-1.8); Bilirubin, Total 0.6 mg/dL (0.1-1.0); Calcium, Blood 9.1 mg/dL (8.5-10.1); Creatinine, Blood 1.48 mg/dL (0.40-1.00); Globulin, Blood 3.8 g/dL (2.2-4.0); Total Protein, Blood 6.9 g/dL (6.4-8.2)
[2025-02-13 16:56] LABS: BASOPHILS ABSOLUTE AUTO 0.03 K/mm3 (0.00-0.23); BASOPHILS PERCENT AUTO 1 % (0-2); EOSINOPHILS ABSOLUTE AUTO 0.02 K/mm3 (0.00-0.68); EOSINOPHILS PERCENT AUTO 1 % (0-6); Hematocrit 40.7 % (33.0-51.0); Hemoglobin 13.4 g/dL (11.5-16.0); IMMATURE GRAN ABSOLUTE AUTO 0.05 K/mm3 (0.00-0.10); IMMATURE GRAN PERCENT AUTO 1 % (0-1); LYMPHOCYTES ABSOLUTE AUTO 0.14 K/mm3 (0.84-5.20); LYMPHOCYTES PERCENT AUTO 4 % (21-46); MONOCYTES ABSOLUTE AUTO 0.04 K/mm3 (0.16-1.47); MONOCYTES PERCENT AUTO 1 % (4-13); Mean Corpuscular HGB 32.2 pg (26.0-34.0); Mean Corpuscular HGB Conc 32.9 g/dL (31.5-36.5); Mean Corpuscular Volume 98 fL (80-100); Mean Platelet Volume 10.1 fL (9.1-12.4); NEUTROPHILS ABSOLUTE AUTO 3.32 K/mm3 (1.96-9.15); NEUTROPHILS PERCENT AUTO 92 % (41-73); Platelet Count 143 K/mm3 (150-400); RDW Coefficient Variation 12.9 % (11.7-14.2); RDW Standard Deviation 46.5 fL (35.1-46.3); Red Blood Cell Count 4.16 M/mm3 (3.80-5.20)
[2025-02-13] MEDS ORDERED: NS 1,000 ML IV ONE (17:21)
[2025-02-13 18:10] LABS: Influenza A, PCR NEGATIVE (NEGATIVE); Influenza B, PCR NEGATIVE (NEGATIVE); Resp Syncytial Virus, PCR NEGATIVE (NEGATIVE); SARS-Cov-2 (COVID-19) PCR, MMC NEGATIVE (NEGATIVE)
[2025-02-13] MEDS ORDERED: NS 1,000 ML IV SCH (19:00)
[2025-02-13 19:13] LABS: Bicarbonate Venous 21.2 mmol/L (24.0-30.0); PCO2 Venous 37.8 mmHg (38-42); pH Blood Venous 7.36 (7.34-7.37)
[2025-02-13] MEDS ORDERED: Aztreonam 1,000 MG in NS 50 ML IV ONE (19:40)
[2025-02-13] MEDS ORDERED: Vancomycin HCL 2,500 MG in NS 500 ML IV ONE (19:45)
[2025-02-13 20:00] LABS: Source, Urine Fem Cath
[2025-02-13 20:09] LABS: Bilirubin, Urine Neg (Neg); Blood, Urine 5+ (Neg); Glucose Qualitative, Urine Neg (Neg); Ketones, Urine Neg (Neg); Leukocyte Esterase, Urine 2+ (Neg); Nitrite, Urine Neg (Neg); Protein, Urine 2+ (Neg); Specific Gravity, Urine 1.005 (1.003-1.022); Urobilinogen, Urine NORM (Normal)
[2025-02-13 20:11] LABS: International Normalized Ratio 1.2; Prothrombin Time Results 12.7 Sec (9.7-11.5)
[2025-02-13 20:16] LABS: Appearance, Urine Clear (Clear); Color, Urine Yellow (P-Yellow)
[2025-02-13 20:17] LABS: Bacteria Many /hpf; Squamous Epithelial Cells Not Seen /hpf (Few)
[2025-02-13] MEDS ORDERED: FLU VACC TS2024-25(6MOS UP)/PF 45 MCG/0.5 ML SYRINGE IM ONE (23:15)
--- NOTE | 2025-02-13 23:45 | NUR ---
Pt admitted to unit at 2242. This RN unable to access pt's chart d/t admitting error per charge nurse RENATA. This rn completing admission interventions as soon as chart is available.
[2025-02-14] VITALS (53 sets, daily range): BP systolic 97–140; BP diastolic 35–92
[2025-02-14] MEDS ORDERED: Doxycycline Hyclate 100 MG in Dextrose 5% 250 ML IV SCH (00:24)
[2025-02-14] MEDS ORDERED: Cefepime HCl 2,000 MG in NS 100 ML IV SCH (00:41)
[2025-02-14 03:22] LABS: Hematocrit 35.6 % (33.0-51.0); Hemoglobin 11.7 g/dL (11.5-16.0); Mean Corpuscular HGB 32.5 pg (26.0-34.0); Mean Corpuscular HGB Conc 32.9 g/dL (31.5-36.5); Mean Corpuscular Volume 99 fL (80-100); Mean Platelet Volume 10.1 fL (9.1-12.4); Platelet Count 155 K/mm3 (150-400); RDW Coefficient Variation 13.3 % (11.7-14.2); RDW Standard Deviation 47.8 fL (35.1-46.3); White Blood Cell Count 16.74 K/mm3 (4.00-11.30)
[2025-02-14 03:45] LABS: Albumin, Blood 2.5 g/dL (3.4-5.0); Albumin/Globulin Ratio 0.8 (0.8-1.8); Bilirubin, Total 0.4 mg/dL (0.1-1.0); Bun/Creatinine Ratio 24.6 (12.0-20.0); Calcium, Blood 8.2 mg/dL (8.5-10.1); Creatinine, Blood 1.67 mg/dL (0.40-1.00); Globulin, Blood 3.1 g/dL (2.2-4.0); Potassium, Blood 4.4 mmol/L (3.5-5.5); Total Protein, Blood 5.6 g/dL (6.4-8.2)
[2025-02-14 03:52] LABS: BAND PERCENT MAN 16 % (0-8); BASOPHILS PERCENT MAN 0 % (0-2); EOSINOPHILS PERCENT MAN 0 % (0-6); LYMPHOCYTES ABSOLUTE MAN 0.66 K/mm3 (0.84-5.20); LYMPHOCYTES PERCENT MAN 4 % (21-46); METAMYELOCYTE ABSOLUTE MAN 0.16 K/mm3 (0.00-0.00); METAMYELOCYTE PERCENT MAN 1 % (0-0); MONOCYTES ABSOLUTE MAN 1.17 K/mm3 (0.16-1.47); MONOCYTES PERCENT MAN 7 % (4-13); NEUTROPHILS ABSOLUTE MAN 14.73 K/mm3 (1.96-9.15); SEG NEUTROPHILS PERCENT MAN 72 % (41-73); TOTAL CELLS COUNTED 100
--- NOTE | 2025-02-14 05:24 | NUR ---
NOC SHIFT SUMMARY NO ACUTE EVENTS. PT ALERT/ORIENTED, COOPERATIVE WITH CARE. USING CALL LIGHT APPRPRIATELY TO MAKE NEEDS KNOWN. LEVOPHED TITRATED OFF- CURRENTLY ON STANDBY. PT WEENED OF O2, ON ROOM AIR MAINTAINING SATS >95%. AV PACED RHYTHM RATE OF 60S. MAP>65. PT AFEBRILE. GOOD URINE OUTPUT VIA PUREWICK. SMALL BM THIS SHIFT- PT ASSISTED TO USE BEDPAN AND PARTICIPATED IN TURN. CENTRAL LINE AND IV IS SALINE LOCKED. CALL LIGHT W/ IN REACH. PLAN OF CARE ONGOING.
[2025-02-14] MEDS ORDERED: Levothyroxine Sodium 0.125 MG Tab PO SCH (06:00)
--- NOTE | 2025-02-14 07:30 | NUR ---
CARE ASSUMPTION DURING BEDSIDE SHIFT REPORT W LA VELAZQUEZ THE PT IS SITTING UP IN BED ON RM AIR. PT IS ALERT AND ORIENTED COMMUNICATING W THIS RN APPROPRIATELY. PT'S MONITOR SHOWING PACED RYTHYM AT 60 BPM. BP STABLE WITH NO VASOPRESSORS INFUSING. SPO2 >94% ON RM AIR. PT REPORTING MILD BACK PAIN WHICH SHE REPORTS IS A CHRONIC ISSUE THAT SHE HAS AT HOME. PT REQUESTING TYLENOL FOR BACK PAIN. DR. TERAN COMING TO BEDSIDE. PROVIDER UPDATED ON POSITIVE BC'S X2. PROVIDER UPDATED ON STABLE BP W NO NEED FOR VASOPRESSORS. PROVIDER GIVING VERBAL ORDER FOR TYLENOL FOR PT'S BACKPAIN. PROVIDER ASKED ABOUT PT ICU STATUS AND CENTRAL LINE. PROVIDER STATING THAT THE PT WILL REMAIN ICU STATUS AND THAT WE WILL NOT REMOVE THE CENTRAL LINE AT THIS TIME. [place] HISTORY PROFESSOR UPDATED.
[2025-02-14] MEDS ORDERED: Enoxaparin 40 MG/0.4 ML SYR SC SCH (09:00)
[2025-02-14] MEDS ORDERED: Rivaroxaban 10 MG Tab PO SCH (09:00)
[2025-02-14] MEDS ORDERED: Hydrocortisone Sod Succinate 100 MG Vial IV SCH (09:00)
[2025-02-14] MEDS ORDERED: Lactobacil 2-S.Thermo-Bifido 1 1 Cap PO SCH (09:00)
[2025-02-14] MEDS ORDERED: Acetaminophen 325 MG TABLET PO PRN (09:50)
--- NOTE | 2025-02-14 18:09 | NUR ---
DAY SHIFT SUMMARY PT REMAINED ALERT AND ORIENTED THIS SHIFT COMMUNICATING APPROPRIATELY W STAFF. PT'S BP WNL AND STABLE THIS SHIFT W NO VASOPRESSORS THIS SHIFT. MONITOR SHOWING V PACED RYTHYM IN THE 60'S THIS SHIFT. PT AFEBRILE THIS SHIFT. SPO2 >94% ON RM AIR. PT UP IN THE RECLINER ALL DAY BEING TRANSFERED W THE CEILING LIFT. PT USING THE PUREWICK W GOOD URINE OUTPUT. PT W 2 BM'S THIS HSIFT. PT W POOR PO INTAKE. WILL REPORT TO ONCOMING RN.
--- NOTE | 2025-02-14 19:00 | NUR ---
ASSUMPTION OF CARE PT ALERT AND ORIENTED AND SITTING UP IN BED. PT PLEASANT AND COOPERATIVE W/ CARE. PT ON ROOM AIR W/ CLEAR LUNGS. PACED RHYTHM ON CHIEF TECHNOLOGIST. BP STABLE W/ MAP >65. PT AFEBRILE. PURE WICK IN PLACE. CALL LIGHT W/ IN REACH
[2025-02-14] MEDS ORDERED: Misc. Opth BOTHEYES SCH (21:00)
[2025-02-15] VITALS (17 sets, daily range): BP systolic 104–142; BP diastolic 41–92
[2025-02-15 04:30] LABS: BASOPHILS ABSOLUTE AUTO 0.01 K/mm3 (0.00-0.23); BASOPHILS PERCENT AUTO 0 % (0-2); EOSINOPHILS PERCENT AUTO 0 % (0-6); Hematocrit 35.3 % (33.0-51.0); Hemoglobin 11.6 g/dL (11.5-16.0); IMMATURE GRAN ABSOLUTE AUTO 0.09 K/mm3 (0.00-0.10); IMMATURE GRAN PERCENT AUTO 1 % (0-1); LYMPHOCYTES PERCENT AUTO 5 % (21-46); MONOCYTES ABSOLUTE AUTO 0.55 K/mm3 (0.16-1.47); MONOCYTES PERCENT AUTO 4 % (4-13); Mean Corpuscular HGB 32.2 pg (26.0-34.0); Mean Corpuscular HGB Conc 32.9 g/dL (31.5-36.5); Mean Corpuscular Volume 98 fL (80-100); Mean Platelet Volume 10.5 fL (9.1-12.4); NEUTROPHILS ABSOLUTE AUTO 12.17 K/mm3 (1.96-9.15); NEUTROPHILS PERCENT AUTO 90 % (41-73); Platelet Count 141 K/mm3 (150-400); RDW Coefficient Variation 13.3 % (11.7-14.2); RDW Standard Deviation 48.3 fL (35.1-46.3); White Blood Cell Count 13.52 K/mm3 (4.00-11.30)
[2025-02-15 05:03] LABS: Bun/Creatinine Ratio 30.8 (12.0-20.0); Calcium, Blood 8.6 mg/dL (8.5-10.1); Creatinine, Blood 1.46 mg/dL (0.40-1.00); Potassium, Blood 4.5 mmol/L (3.5-5.5)
--- NOTE | 2025-02-15 05:40 | NUR ---
NOC SHIFT SUMMARY NO ACUTE EVENTS OVERNIGHT. PT ALERT/ORIENTED. COOPERATIVE W/ CARE. PARTICIPATED IN TURNS, REMAINS GENERALLY WEAK. RIJ CENTRAL LINE SALINE LOCKED. PT ON RA W/ CLEAR LUNGS. PACED RHYTHM RATE OF 60S VIA CONTINUOUS COLLISION ESTIMATOR. BP STABLE. PT AFEBRILE. NO BM THIS SHIFT. PURE WICK IN PLACE. CALL LIGHT W/ IN REACH AND PT USING APPROPRIATELY. PLAN OF CARE ONGOING.
[2025-02-15] MEDS ORDERED: Amiodarone HCl 200 MG Tab PO SCH (09:00)
[2025-02-15] MEDS ORDERED: Metoprolol Succinate 25 MG TABCR PO SCH (09:00)
--- NOTE | 2025-02-15 12:42 | NUR ---
Pt. is awake and sitting in a chair. Pt. welcomes my visit and is pleasant. Facilitate a leaf review and listen with empathy and interest. 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 Pt. verbalized special pastoral insight, and consern for all who care for Pts. adn families. Prayed with the Pt. Pt. verbalized gratitude for the spiritual care visit as well as the care she has received form the medical team. Will remain availabel to the Pt.
--- NOTE | 2025-02-15 15:21 | NUR ---
ICU DAYSHIFT SUMMARY PT'S DAY UNEVENTFUL W VSS ON RM AIR. PT REPORTING FEELING MUCH BETTER THAN PREVIOUS DAY. PT'S CENTRAL LINE DC'D AFTER PERIPHERAL ACCESS OBTAINED. PT TOLERATING PO DIET WELL. PT VOIDING WELL. PT TO GO MEDICAL FLOOR PER DR. TERAN. REPORT GIVEN TO MEDICAL FLOOR RN.
--- NOTE | 2025-02-15 17:41 | NUR ---
TRANSFER NOTE PATIENT TRANSFERRED FROM ICU-5 INTO A LIFT ROOM. PHYSICAL THERAPY TO EVALUATE. PATIENT HAS NOT BEEN UP OOB SINCE ADMISSION, STILL FEELING VERY WEAK. OBESTIY. NORMALLY AMBULATES WITH A CANE OR WALKER FOR LONGER DISTANCES. INCONTINENT OF URINE, NORMALLY WEARS INCONT PADS. PUREWICK PLACED. ON ROOM AIR, MAINTAINING SATS. LOWER EXTREMITTIES APPEAR BROWN/DISCORLORED WHICH IS HER NORM. 2 PERSON TO TURN IN BED, PATIENT CAN ASSIST. POWERGLIDE TO OPAL. GUAZE AND TEGADERM TO RIGHT NECK FROM CENTRAL LINE REMOVAL TODAY 02/15
[2025-02-16 04:38] VITALS: BP 147/71
--- NOTE | 2025-02-16 07:08 | NUR ---
SHIFT SUMMARY PT ALERT AND ORIENTED TIMES 3 . PT ADMITTED FOR SEPTIC SHOCK. SHORTNESS OF BREATH. PT ON CEFEPINE, HAS PUREWICK, NO TELE. PT USES FORWARD WALKER WITH ASSIST. PT IS RECEPTIVE TO CARE. BED IN LOW POSITION, CALL LIGHT WITHIN REACH, RAILS TIMES 2.
[2025-02-16 08:03] VITALS: BP 144/74
[2025-02-16] MEDS ORDERED: NS 250 ML IV PRN (09:50)
--- NOTE | 2025-02-16 11:16 | NUR ---
Pt. is sitting in a recliner with her feet up when she welcomes my visit. Facilitated an update, and the Pt. verbalized that her doctor cautiously agreed to let her go home to care for her family if she kept her mobility ot a minamum. Sought to normalize the Pt. experience, and affirm the hospitalists concern. Prayed with the Pt. Afterward with tears, she said she really felt the holy spirit in our prayer. Will remain available to the Pt.
[2025-02-16 15:26] VITALS: BP 132/67
[2025-02-16] MEDS ORDERED: ALPHAGAN P5 ML BOTHEYES (17:40)
[2025-02-16] MEDS ORDERED: FASLODEX250 MG/5 M IM (17:43)
--- NOTE | 2025-02-16 18:46 | NUR ---
SHIFT SUMMARY PT A&OX4, VSS, TOLERATING PO, VOIDING, AND PAIN MANAGED PER EMAR. PT UNABLE TO GET UP FROM CHAIR OR BED W/ OUT ASSIST, BUT ABLE TO AMB W/ SBA ONCE UP. NO OTHER ACUTE CHANGES. CALL LIGHT WITHIN REACH AND PT ABLE TO MAKE NEEDS KNOWN.
[2025-02-16 19:47] VITALS: BP 153/79
[2025-02-16] MEDS ORDERED: Sacubitril/Valsartan 24 MG-26 MG Tab PO SCH (21:00)
[2025-02-16] MEDS ORDERED: Miconazole Nitrate 2% 85 GM PWD TOP SCH (21:00)
[2025-02-16] MEDS ORDERED: Cefepime HCl 1,000 MG in NS 100 ML IV SCH (21:00)
[2025-02-17 03:56] VITALS: BP 156/72
[2025-02-17 07:19] VITALS: BP 167/74
[2025-02-17] MEDS ORDERED: Furosemide 20 MG Tab PO SCH (09:00)
[2025-02-17] MEDS ORDERED: Empagliflozin 10 MG TAB PO SCH (09:00)
[2025-02-17] MEDS ORDERED: OPTHALMIC BOTHEYES (11:58)
[2025-02-17] MEDS ORDERED: VISBIOME 112.51 EACH PO (11:58)
[2025-02-17] MEDS ORDERED: CEFP200 PO (11:59)
--- NOTE | 2025-02-17 15:04 | NUR ---
DISCHARGE NOTE PT D/C HOME AT 1455. PT PROVIDED W/ VERBAL AND WRITTEN INSTRUCTIONS AND REPORTED UNDERSTANDING. PT A&OX4, VSS, AMB W/ ASSIST, TOLERATING PO, VOIDING, AND PAIN MANAGED PER EMAR. BELONGINGS WERE RETURNED AND PT ESCOURTED OUT VIA W/C BY ANYA ROME.
== END 2025-02-17 14:54 | disposition home health service (06) | DRG 871 ==
LOC: ER 15:24 → ICUE 23:29 → MEDS 02-15 15:35 → ENPENDDIS 02-17 12:26 → MEDS 02-17 14:54
PROVIDERS: Family Medicine; Internal Medicine; Student in an Organized Health Care Education/Training Program; ADMIT Internal Medicine
PROC: 3E043XZ Introduction of Vasopressor into Central Vein, Percutaneous Approach (ICD-10-PCS; principal; 2025-02-13)
PROC: 02HV33Z Insertion of Infusion Device into Superior Vena Cava, Percutaneous Approach (ICD-10-PCS; 2025-02-13)
PROC: 3E03329 Introduction of Other Anti-infective into Peripheral Vein, Percutaneous Approach (ICD-10-PCS; 2025-02-13)
DX: A41.51 Sepsis due to Escherichia coli [E. coli] (principal); J18.9 Pneumonia, unspecified organism; J96.01 Acute respiratory failure with hypoxia; R65.21 Severe sepsis with septic shock; I44.2 Atrioventricular block, complete; I50.32 Chronic diastolic (congestive) heart failure; E87.1 Hypo-osmolality and hyponatremia; J44.0 Chronic obstructive pulmonary disease with (acute) lower respiratory infection; I13.0 Hypertensive heart and chronic kidney disease with heart failure and stage 1 through stage 4 chronic kidney disease, or unspecified chronic kidney disease; Z68.41 Body mass index [BMI] 40.0-44.9, adult; R79.1 Abnormal coagulation profile; N18.32 Chronic kidney disease, stage 3b; I27.20 Pulmonary hypertension, unspecified; E66.01 Morbid (severe) obesity due to excess calories; I48.0 Paroxysmal atrial fibrillation; E03.8 Other specified hypothyroidism; T78.49XA Other allergy, initial encounter; T36.1X5A Adverse effect of cephalosporins and other beta-lactam antibiotics, initial encounter; Z88.0 Allergy status to penicillin; Z88.1 Allergy status to other antibiotic agents; Z79.01 Long term (current) use of anticoagulants; Z95.0 Presence of cardiac pacemaker; Z85.3 Personal history of malignant neoplasm of breast; Z88.6 Allergy status to analgesic agent; Z79.890 Hormone replacement therapy; Z79.84 Long term (current) use of oral hypoglycemic drugs
CPT/HCPCS: 0241U; 36415; 36556; 71045; 71046; 71260; 80048; 80053; 81001; 82803; 83605; 83880; 84484; 85025; 85379; 85610; 85730; 87040; 87077; 87086; 87186; 93005; 93010; 94762; 96361-59; 96365-59; 96375-59; 97110; 97116; 97161; 97530; 99285-25; A9270; C1751; J0692; J1720; J3370; J7030; J7040; J7050; J7060; Q9967